=== PATIENT | female | born 1945 | race Caucasian/White ===

== ENCOUNTER 2021-05-09 02:48 | Observation (INO) | payer OTHER ==
[~2021-05-09] VITALS: Ht 167.6 cm; Wt 63.5 kg
[2021-05-09 02:57] VITALS: BP 169/77
[2021-05-09] MEDS ORDERED: LISINOPRIL5 MG PO (03:02)
[2021-05-09] MEDS ORDERED: AMARYL1 MG PO (03:02)
[2021-05-09] MEDS ORDERED: METFORMIN HCL500 M3 PO (03:02)
[2021-05-09] MEDS ORDERED: LIPITOR10 MG PO (03:02)
[2021-05-09] MEDS ORDERED: LEVEMIR100 UNIT/1 SUBQ (03:03)
[2021-05-09] MEDS ORDERED: ERYTHROMYCIN250 M1 (03:04)
[2021-05-09 03:32] LABS: ABSOLUTE BASOPHILS 0.1 thou/uL (0.0-0.2); ABSOLUTE EOSINOPHILS 0.1 thou/uL (0.0-0.7); ABSOLUTE LYMPHOCYTES 3.5 thou/uL (0.8-5.3); ABSOLUTE MONOCYTES 0.6 thou/uL (0.0-1.2); ABSOLUTE NEUTROPHILS 5.8 thou/uL (1.6-8.1); BASOPHILS 0.9 %; EOSINOPHILS 1.1 %; HEMATOCRIT 39.7 % (37.0-47.0); LYMPHOCYTES 34.7 %; MCH 30.1 pg (26.0-34.0); MCHC 32.8 g/dL (28.0-37.0); MCV 91.5 fL (80.0-100.0); MONOCYTES 6.3 %; MPV 7.7 fl. (7.2-11.1); NUCLEATED RBCS 0 /100WBC; PLATELET COUNT* 352 thou/uL (150-400); RBC 4.34 mil/uL (4.20-5.00); RDW-CV 13.7 % (10.5-14.5); WBC 10.2 thou/uL (4.0-11.0)
[2021-05-09 03:43] LABS: CREATININE 1.3 mg/dL (0.6-1.3)
[2021-05-09 03:46] LABS: APTT 27.3 Seconds (25.0-31.3); PROTIME 10.3 Seconds (9.20-11.50)
[2021-05-09 03:48] LABS: ALBUMIN 3.5 g/dL (3.4-5.0); TOTAL BILIRUBIN 0.4 mg/dL (<0.1-1.0); TOTAL PROTEIN 6.6 g/dL (6.4-8.2)
[2021-05-09 05:43] VITALS: BP 138/81
[2021-05-09 08:00] VITALS: BP 115/58
[2021-05-09] MEDS ORDERED: OMEPRAZOLE10 MG PO (10:18)
[2021-05-09 12:13] LABS: CHOLESTEROL 95 mg/dL (<200); HDL CHOLESTEROL 43 mg/dL (>40); LDL CHOLESTEROL 11 mg/dL (<100); TC:HDL 2.2 Ratio (Not establshd); TRIGLYCERIDE 205 mg/dL (<150); VLDL 41 mg/dL (<40)
[2021-05-09 12:14] LABS: SERUM ASSESSMENT Clear
[2021-05-09 12:19] VITALS: BP 118/68; BP 158/85
--- NOTE | 2021-05-09 16:00 | EXE ---
[place] [address] STRESS ECHOCARDIOGRAM Name: ELLE LEYMIKIE Coates [address] [id number] Admission: 05/09/21 Attend Phys: Rachelle Umana, Discharge: Date of : 49 Date of Service: 05/09/21 1600 Report #: [id number] THIS REPORT FOR: cc: Maira Emanuel Angela Jo RNP Holkins, John M. MD [facility] ~ APPROVED REPORT Study performed: 05/09/2021 16:01:13 Exam: Stress Echocardiogram Patient Location: In-Patient Stress Nurse: Millie Fenton RN Supervising Physician: Rupesh Walker MD Ht: 5 ft 6 in HR: 77 bpm BP: 143/59 mmHg Medical History Cardiac Risk Factors: Hyperlipidemia, HTN, DM, FHX of CAD Procedure The patient underwent a Pharmacological Stress Test using Dobutamine. Blood pressure, heart rate, and EKG were monitored. An Echocardiogram was performed by network control technician in four stages in quad fashion. At peak stress, four selected images were obtained and placed side by side with resting images for comparison. Stress Test Details Stress Test: Pharmacological Stress Test using Dobutamine. Reason for pharmacologic stress test: physical limitation. HR Resting HR: 77 bpm Max Heart Rate (APMHR): 147 bpm Max HR Achieved: 136 bpm Target HR (85% APMHR): 124 bpm % of APMHR: 92 Recovery HR: 94 bpm HR response to stress: Normal HR response to stress BP Resting BP: 143/59 mmHg Max BP: 261/34 mmHg Recovery BP: 162/58 [place] [address] STRESS ECHOCARDIOGRAM Name: KYRIE LEY Room: [address]#: [id number] Admission: 05/09/21 Attend Phys: Rachelle Umana, Discharge: Date of : 49 Date of Service: 05/09/21 1600 Report #: [id number] BP response to stress: Abnormal hypertensive response to stress. ECG Resting ECG: Sinus rhythm minor nonspecific anterolateral ST-T alterations Stress ECG: No ischemic ST-T changes noted Arrhythmia: No arrhythmias noted Recovery EC/2 to 1 mm of downsloping anterolateral ST segment depression post exercise; these changes are equivocal with respect to ischemia Recovery Arrhythmia: No arrhythmias noted Clinical Reason for Termination: Completed protocol Pre-Stress Echo The resting Echocardiogram showed normal left ventricular contractility with an estimated Ejection Fraction of about 60-65%. Normal wall motion in all segments on baseline images. Post-Stress Echo The stress Echocardiogram showed normal left ventricular contractility with an estimated Ejection Fraction of about >70%. Normal augmentation of wall motion in all segments on post stress images. Conclusion Clinical Response: Non-ischemic Exercise Capacity: Not assessed Stress ECG Response: Equivocal Stress Echo Images: Non-ischemic Other Information Study Quality: Good <ELECTRONICALLY SIGNED> By: Rupesh Walker MD, FACC 05/09/211599 99 99 Rupesh Walker MD, FACC /INF
[2021-05-09 16:51] VITALS: BP 153/64
[2021-05-09 20:46] VITALS: BP 159/68
[2021-05-10 00:08] VITALS: BP 130/62
[2021-05-10 04:00] VITALS: BP 122/47
[2021-05-10 09:00] VITALS: BP 104/45
[2021-05-10] MEDS ORDERED: COREG3.125 MG PO (10:01)
--- NOTE | 2021-05-10 10:02 | EKG ---
[place] [address] ELECTROCARDIOGRAM REPORT Name: KYRIE LEY [address] [id number] Admission: 05/09/21 Attend Phys: Rachelle Umana, Discharge: Date of : 49 Date of Service: 05/09/21 0254 Report #: [id number] THIS REPORT FOR: //name// [facility] ED Test Date: 2021-05-09 Test Time: 02:54:01 Pat Name: KYRIE LEY Department: Room: [facility] Gender: F Sheet [place]: [place] : 1945 Requested By: Bonnie Grigsby Order Number: [id number] MD: Rupesh Walker Measurements Intervals [place] Rate: 99 P: 79 AR: 150 QRS: 83 QRSD: 86 T: -21 QT: 362 QTc: 465 Interpretive Statements Sinus rhythm Biatrial enlargement Borderline right axis deviation Borderline repolarization abnormality No previous ECG available for comparison Electronically Signed On 05-09-2021 14:10:33 [employer]NA[employer] by Rupesh Walker [email or web address] <ELECTRONICALLY SIGNED> By: Rupesh Walker MD, MERGED WITH [facility] 05/09/21 1410 0254 0254 Rupesh Walker MD, MERGED WITH [facility] /EPI
[2021-05-10 12:14] VITALS: BP 122/54
[2021-05-10] MEDS ORDERED: LYRICA25 MG PO (12:34)
[2021-05-10] MEDS ORDERED: NEURONTIN 300M300 M2 PO (12:34)
[2021-05-10 13:14] VITALS: BP 122/54
== END 2021-05-10 14:15 | disposition home or self-care (01) ==
LOC: M.ERS 02:48 → M.2W 05:02 → M.TBA-ER 05:02 → M.2W 05:14
PROVIDERS: Personal Emergency Response Attendant; Registered Nurse; ADMIT Internal Medicine; ATTEND Internal Medicine
DX: I16.1 Hypertensive emergency (principal); Z20.822 Contact with and (suspected) exposure to COVID-19; E11.65 Type 2 diabetes mellitus with hyperglycemia; R07.89 Other chest pain; J20.9 Acute bronchitis, unspecified; J42 Unspecified chronic bronchitis; N39.0 Urinary tract infection, site not specified; I10 Essential (primary) hypertension; E03.9 Hypothyroidism, unspecified; M79.602 Pain in left arm; E11.40 Type 2 diabetes mellitus with diabetic neuropathy, unspecified; M10.9 Gout, unspecified; F17.210 Nicotine dependence, cigarettes, uncomplicated; Z79.4 Long term (current) use of insulin; Z79.82 Long term (current) use of aspirin; Z79.899 Other long term (current) drug therapy